=== PATIENT | male | born 1985 | race Caucasian/White ===

== ENCOUNTER 2017-02-14 13:16 | Emergency (ER) | payer BC, OTHER, SELFPAY ==
[2017-02-14 14:28] LABS: Bilirubin Negative (Negative); Blood, Urine Trace (Negative); Clarity Clear (Clear); Glucose, Urine (Dipstick) Negative (Negative); Leukocyte Negative (Negative); Nitrite Negative (Negative); Protein, Urine (Dipstick) Negative (Neg-Trace); Urobilinogen 0.2 mg/dL (0.2-1.0)
[2017-02-14 14:33] LABS: Bacteria/HPF Rare-Few HPF (None Seen); Crystals/HPF RARE AMORPH URATES HPF (Negative); RBC/HPF 0-3 HPF (0-3); Squamous Epithelial 0-3 HPF (0-3); WBC/HPF 0-3 HPF (0-3)
[2017-02-14 14:41] LABS: ALT (SGPT) 55 U/L (8-55); AST (SGOT) 38 U/L (5-34); Albumin 4.7 g/dL (3.5-5.0); Alkaline Phosphatase 74 U/L (40-150); Anion Gap 17 mmol/L (10-20); BUN (Urea Nitrogen) 18 mg/dL (8.9-20.6); Bilirubin, Total 0.4 mg/dL (0.2-1.2); Calc. Creatinine Clearance 0 mL/min (70-130); Calcium 9.8 mg/dL (7.8-10.44); Carbon Dioxide 24 mmol/L (22-29); Chloride 102 mmol/L (98-107); Estimated GFR-MDRD Greater than 90; Globulin 4.2 g/dL (2.4-3.5); Glucose 102 mg/dL (70-105); Potassium 4.3 mmol/L (3.5-5.1); Protein, Total 8.9 g/dL (6.0-8.3); Sodium 139 mmol/L (136-145)
[2017-02-14 14:52] LABS: #Basophils 0.1 thou/uL (0.0-0.2); #Eosinphils 0.2 thou/uL (0.0-0.7); #Lymphocytes 1.1 thou/uL (1.20-3.40); #Monocytes 0.4 thou/uL (0.11-0.59); #Neutrophils 4.7 thou/uL (1.40-6.50); %Basophils 1.2 % (0.0-1.0); %Eosinophils 2.8 % (0.0-10.0); %Lymphocytes 16.8 % (21.0-51.0); %Monocytes 6.5 % (0.0-10.0); %Neutrophils 72.8 % (42.0-75.0); Hemoglobin 16.3 g/dL (14.0-18.0); Mean Corpuscular HGB CONC 34.8 g/dL (32.0-36.0); Mean Corpuscular Hemoglobin 31.3 pg (27.0-31.0); Mean Corpuscular Volume 90.1 fl (80.0-94.0); Mean Platelet Volume 7.8 fL (7.4-10.4); Platelet Count 180 thou/uL (130-400); RBC Distribution Width 11.5 % (11.5-14.5); Red Blood Cell (RBC) Count 5.21 mill/uL (4.70-6.10); White Blood Cell (WBC) Count 6.5 thou/uL (4.8-10.8)
--- NOTE | 2017-02-14 17:29 | CT ---
CT ABDOMEN AND PELVIS WITHOUT CONTRAST 02/14/[address] of the abdomen and pelvis was done using no oral or IV contrast by request. Axial slices we re acquired, then coronal reconstructions were done. The lung bases are clear. The liver, spleen, pancreas, adrenal glands and abdominal aorta were unrema rkable in appearance within the limitations of a noncontrast study. The gallbladder is collapsed and difficult to evaluate. The patient has a horseshoe kidney. There are multiple calculi in the left kidney which seem nonobstr ucting. There are several cystic areas in the left kidney, though ultrasound would be needed to prove their cystic nature. There is probably the beginnings of a small calculus in the right kidney. The bowel is nondistended with no sign of obstruction. There is an area of haziness just anterior to the mid descending colon on the left side, just a few centimeters above the level of the left iliac c rest. There may be a tiny diverticula or two here. Thus, the possibility of minimal diverticulitis is raised, or similar inflammatory cause. There is no sign of appendicitis. There is no free air or libertad e fluid. CT of the pelvis showed no pelvic masses, inflammatory changes, or free fluid. IMPRESSION: 1. Area of haziness just above the left iliac crest that is probably associated with inflammator y reaction from the descending colon. Minimal diverticulitis is possible. 2. Horseshoe kidney with renal calculi, particularly in the left kidney. There are probably cyst s in the left kidney as well, but ultrasound would be needed to confirm it. Findings discussed with Dr. Rangel at 1527 on 02/14/17. POS: HOME
== END 2017-02-14 16:19 | disposition home or self-care (01) ==
LOC: BURERS 13:16
DX: K57.32 Diverticulitis of large intestine without perforation or abscess without bleeding (principal); F41.9 Anxiety disorder, unspecified; F17.210 Nicotine dependence, cigarettes, uncomplicated; Z79.899 Other long term (current) drug therapy
CPT/HCPCS: 36415; 74176; 80053; 81003; 81015; 85025